=== PATIENT | female | born 1965 | race Caucasian/White ===

== ENCOUNTER 2019-05-04 10:15 | Emergency (ER) | payer OTHER ==
[~2019-05-04] VITALS: Ht 157.5 cm; Wt 83.9 kg
[2019-05-04] MEDS ORDERED: FORTAMET500 MG (10:39)
[2019-05-04] MEDS ORDERED: TRICOR145 MG (10:39)
[2019-05-04] MEDS ORDERED: SYNTHROID75 MCG (10:40)
[2019-05-04] MEDS ORDERED: CRESTOR10 MG (10:40)
[2019-05-04] MEDS ORDERED: VISTARIL50 MG (10:41)
[2019-05-04] MEDS ORDERED: ZOLOFT100 MG (10:41)
[2019-05-04] MEDS ORDERED: BUTALB-ACETAMI1 EACH (10:42)
[2019-05-04] MEDS ORDERED: [UNRECOGNIZED DRUG - OTHER] (10:43)
[2019-05-04] MEDS ORDERED: LEUCOVORIN CALCI5 MG (10:44)
[2019-05-04] MEDS ORDERED: METHOTREXATE 1 G1 GM (10:44)
[2019-05-04] MEDS ORDERED: HUMIRA PEN40 MG/0.2 (10:45)
[2019-05-04] MEDS ORDERED: COZAAR100 MG (10:46)
[2019-05-04] MEDS ORDERED: KETO10TA2 PO (13:32)
== END 2019-05-04 13:55 | disposition home or self-care (01) ==
LOC: ER 10:15
DX: S62.398A Other fracture of other metacarpal bone, initial encounter for closed fracture (principal); M79.644 Pain in right finger(s); S60.221S Contusion of right hand, sequela; W22.8XXS Striking against or struck by other objects, sequela